=== PATIENT | female | born 1985 | race Caucasian/White ===

== ENCOUNTER → 2016-09-11 | Outpatient (CLI) | payer MEDICAID | END | disposition home or self-care (01) | LOC: MMGSC 16:43 | PROVIDERS: ATTEND Family Medicine | DX: J02.9 Acute pharyngitis, unspecified (principal) | CPT/HCPCS: 87070 ==

== ENCOUNTER → 2019-05-06 | Outpatient (CLI) | payer BC ==
--- NOTE | 2019-05-07 08:46 | XR ---
EXAMINATION TYPE: XR cervical spine comp DATE OF EXAM: 05/06/2019 TECHNIQUE: Frontal, lateral, oblique, swimmers, and open mouth view of the cervical spine are obtaine d. HISTORY: Nontraumatic neck pain COMPARISON: None FINDINGS: The cervical spine is visualized in its entirety from C1 thru the top of T1 level, it is s atisfactory in alignment without evidence of acute fracture or dislocation. Straightening of usual ce rvical lordosis is seen. The pre-vertebral soft tissue appears within normal limits. The C1-C2 roz culation is within normal limits on the open mouth view. The oblique images are within normal limits . IMPRESSION: No acute fracture or malalignment is seen in the cervical spine. There is straightening of usual cervical lordosis that may be on the basis of muscular sprain/spasm or patient positioning.
== END | disposition home or self-care (01) ==
LOC: RADXRMAIN 15:35
PROVIDERS: ATTEND Family Medicine
DX: M54.2 Cervicalgia (principal)
CPT/HCPCS: 72050